=== PATIENT | female | born 1955 | race Caucasian/White ===

== ENCOUNTER 2025-05-25 15:47 | Emergency (ER) | payer MEDICARE, MEDICAID, SELFPAY ==
[2025-05-25] VITALS (17 sets, daily range): BP systolic 113–220; BP diastolic 45–109; PULSE 62–119; RESP 11–27; TEMP 36.4–37.3; O2SAT 95–100; BMI 33.6
--- NOTE | 2025-05-25 15:57 | PD.EDADULT ---
ED General RME/HPI General Chief complaint: Seizure Stated complaint: SEIZURES Time Seen by Provider: 05/25/25 15:56 Arrival date/time: 05/25/25 15:47 RME / HPI RME / HPI narrative: see MDM Related Data Home Medications ?Medication ?Instructions ?Recorded ?Confirmed Multivitamins W-Minerals 1 cap PO QDAY ##0 03/02/10 (Multivitamin) Phenytoin Sodium Extended * 3 cap PO QDAY 3 days ##0 03/02/10 (DILANTIN *) Trazodone Hcl (Trazodone) 50 mg PO QDAY ##0 03/02/10 amlodipine 10 mg tablet (Norvasc) 1 PO QDAY ##0 03/02/10 atenolol 25 mg tablet (Tenormin) 1 PO QDAY ##0 03/02/10 clonazepam 0.5 mg tablet (Klonopin) 1 PO BID ##0 03/02/10 enalapril maleate 20 mg tablet 1 PO BID ##0 03/02/10 lansoprazole 30 mg capsule,delayed 1 PO QDAY ##0 03/02/10 release (Prevacid) lisinopril 40 mg tablet 1 PO QDAY ##0 03/02/10 lovastatin 20 mg tablet 1 PO QDAY ##0 03/02/10 quetiapine 100 mg tablet (Seroquel) 1 PO QDAY ##0 03/02/10 quetiapine 200 mg tablet (Seroquel) 1 PO BID ##0 03/02/10 sertraline 50 mg tablet (Zoloft) 1 PO QDAY ##0 03/02/10 Previous Rx's ?Medication ?Instructions ?Recorded levetiracetam 500 mg tablet 500 mg PO BID #60 tabs 05/25/25 (Keppra) levofloxacin 500 mg tablet 500 mg PO QDAY 10 days #10 tabs 05/25/25 Allergies Allergy/AdvReac Type Severity Reaction Status Date / Time NKA* Allergy Uncoded 03/14/12 08:46 Review of Systems Review of Systems Systems Reviewed: All systems reviewed, normal except as documented Course Course Course Narrative: see MDM Quality Measures none Orders Category Date Time Status Straight [In and Out Catheter] X1 Care 05/25/25 17:05 Completed Strict Intake and Output Routine Care 05/25/25 17:[address] abdomen pelvis wo con Stat Exams 05/25/25 17:[address] head/brain wo con Stat Exams 05/25/25 16:16 Completed CXRP [XR chest 1V portable] Stat Exams 05/25/25 16:29 Completed US gall bladder Stat Exams 05/25/25 20:09 Completed Alcohol, Urine Stat Lab 05/25/25 17:17 Completed CBC Stat Lab 05/25/25 16:10 Completed CMP [Comprehensive Metabolic Panel] Stat Lab 05/25/25 16:10 Completed Drug Screen,Urine Stat Lab 05/25/25 17:17 Completed Mag [Magnesium] Stat Lab 05/25/25 16:10 Completed Phenytoin (Dilantin) Stat Lab 05/25/25 16:10 Completed Phosphorous Stat Lab 05/25/25 16:10 Completed UA [Urinalysis] Stat Lab 05/25/25 17:17 Completed Cefepime Inj [Maxipime Inj] 2 gm Med 05/25/25 20:07 Discontinued SODIUM CHLORIDE 0.9% (Popper) [Ns 0.9% (P)] 50 ml IV X1 Furosemide Inj [Lasix Inj] Med 05/25/25 17:04 Discontinued 40 mg IVP X1 ONE LORazepam [Ativan Inj] Med 05/25/25 21:01 Discontinued 1 mg IVP X1 ONE LORazepam [Ativan Inj] Med 05/25/25 16:30 Discontinued 2 mg IVP Q10MIN PRN LORazepam [Ativan Inj] Med 05/25/25 16:11 Discontinued 2 mg IVP Q1H PRN Magnesium Sulfate 2 GM Ivpb [Magnesium Sulfate Ivpb] Med 05/25/25 18:34 Discontinued 2 gm in 50 ml IV X1 Ondansetron Inj [Zofran Inj] Med 05/25/25 21:01 Discontinued 4 mg IVP X1 ONE Vancomycin Inj 2,000 mg Med 05/25/25 20:07 Discontinued Sodium Chloride 0.9% 500 ml [Ns] 500 ml IV X1 cloNIDine HCL [Catapres] Med 05/25/25 18:06 Discontinued 0.3 mg PO X1 ONE hydrALAZINE INJ [Apresoline Inj] Med 05/25/25 20:41 Discontinued 10 mg IVP X1 ONE hydrALAZINE INJ [Apresoline Inj] Med 05/25/25 22:55 Discontinued 10 mg IVP X1 ONE levETIRAcetam INJ [Keppra Inj] Med 05/25/25 18:35 Discontinued 2,000 mg IVP X1 ONE Vital Signs Vital signs: Vital Signs Temperature 99.1 F 05/25/25 16:04 Pulse Rate 111 H 05/25/25 16:04 Respiratory Rate 24 H 05/25/25 16:04 Blood Pressure 113/85 H 05/25/25 16:04 Pulse Oximetry (%) 100 05/25/25 16:04 Oxygen Delivery Method Oxy Mask 05/25/25 16:04 Oxygen Flow Rate 15 05/25/25 16:04 Discharge Plan Plan Patient Disposition: HOME (Self Care) Prescriptions/Referrals Prescriptions/Med Rec: New levetiracetam [Keppra] 500 mg tablet 500 mg PO BID Qty: 60 0RF levofloxacin 500 mg tablet 500 mg PO QDAY 10 Days Qty: 10 0RF No Action enalapril maleate 20 MG tablet 1 PO BID Qty: 0 quetiapine [Seroquel] 200 MG tablet 1 PO BID Qty: 0 quetiapine [Seroquel] 100 MG tablet 1 PO QDAY Qty: 0 amlodipine [Norvasc] 10 MG tablet 1 PO QDAY Qty: 0 clonazepam [Klonopin] 0.5 MG tablet 1 PO BID Qty: 0 atenolol [Tenormin] 25 MG tablet 1 PO QDAY Qty: 0 lansoprazole [Prevacid] 30 MG capsule,delayed release(DR/EC) 1 PO QDAY Qty: 0 lovastatin 20 MG tablet 1 PO QDAY Qty: 0 lisinopril 40 MG tablet 1 PO QDAY Qty: 0 sertraline [Zoloft] 50 mg tablet 1 PO QDAY Qty: 0 Multivitamins W-Minerals (Multivitamin) 1 CAP capsule 1 cap PO QDAY Qty: 0 Phenytoin Sodium Extended * (DILANTIN *) 100 MG capsule 3 cap PO QDAY 3 Days Qty: 0 Patient Comments: FOR SEIZURE CONTROL Trazodone Hcl (Trazodone) 50 MG tablet 50 mg PO QDAY Qty: 0 Referrals: No Primary/Family,Physician [Primary Care Provider] - In 1 week Problem List Clinical Impression: Recurrent seizures, prison-acquired pneumonia Patient/Caregiver Discharge Instructions Discharge Activity: activity as tolerated Education Materials: ED Pneumonia (Adult), ED Seizure, Recurrent (Adult) Additional Instructions: Discharge Instructions from Dr. Leal printed for you: 1. To help prevent more seizures, give Keppra as prescribed. 2. Give Levaquin as prescribed for pneumonia. 3. Seek immediate medical care with worsening or with any concerns. Print Language: Kiswahili Stand Alone Forms: [facility] Award Info., Patient Portal Info Letter MDM Narrative MDM hospital course: 70 y/o F with PMHX of HTN, HLD, epilepsy who was brought to the ED by ambulance from [facility] due to seizures. Per EMS report patient was seizing at the facility for 14minutes prior to EMS arrival. Patient received 6mg of versed on the way and after last dose was able to break the seizure. They also report patient denied taking her home seizure meds yesterday but was able to take them today. She is currently post-ictal, did not wish to interact or participate in history taking. When asked what happened prior to arrival all she states is I dont feel so good and some pain in her belly . 1622: Labs and imaging ordered 1706: CBC shows normocytic anemia, CMP shows mild hypernatremia, phenytoin lvls wnl Clinical Information Provided by EMS Medical Records Reviewed None Medication Administration(s) Medication Administration History Discontinued Medications Clonidine (Clonidine Hcl 0.1 Mg Tablet) 0.3 mg PO X1 ONE Stop: 05/25/25 18:07 Last Admin: 05/25/25 23:01 Dose: Not Given Documented By: CG Non-Admin Reason: Change of Condition Furosemide (Furosemide Inj 10 Mg/Ml 4ml Vial) 40 mg IVP X1 ONE Stop: 05/25/25 17:05 Last Admin: 05/25/25 17:31 Dose: 40 mg Documented By: CG(2) Hydralazine HCl (Hydralazine Inj 20 Mg/Ml Vial) 10 mg IVP X1 ONE Stop: 05/25/25 20:42 Last Admin: 05/25/25 21:12 Dose: 10 mg Documented By: CG Hydralazine HCl (Hydralazine Inj 20 Mg/Ml Vial) 10 mg IVP X1 ONE Stop: 05/25/25 22:56 Last Admin: 05/25/25 23:32 Dose: Not Given Documented By: CG Non-Admin Reason: Change of Condition Magnesium Sulfate (Magnesium Sulfate Ivpb) 2 gm in 50 mls @ 25 mls/hr IV X1 ONE Stop: 05/25/25 20:33 Last Infusion: 05/25/25 21:50 Dose: Infused Documented By: Admin: 05/25/25 19:50 Dose: 25 mls/hr Documented By: CG Cefepime HCl 2 gm/ Sodium (Chloride) 50 mls @ 100 mls/hr IV X1 ONE Stop: 05/25/25 20:36 Last Infusion: 05/25/25 21:43 Dose: Infused Documented By: Admin: 05/25/25 21:13 Dose: 100 mls/hr Documented By: CG Vancomycin HCl 2,000 mg/ (Sodium Chloride) 500 mls @ 150 mls/hr IV X1 ONE Stop: 05/25/25 23:26 Last Admin: 05/25/25 22:56 Dose: Not Given Documented By: JOSE EDUARDO Non-Admin Reason: Discontinued Levetiracetam (Levetiracetam Inj 100 Mg/Ml Vial 5ml) 2,000 mg IVP X1 ONE Stop: 05/25/25 18:36 Last Admin: 05/25/25 19:37 Dose: 2,000 mg Documented By: YOANDY Lorazepam (Lorazepam 2 Mg/Ml Vial) 2 mg IVP Q1H PRN PRN Reason: breakthrough seizures Stop: 05/30/25 16:10 Lorazepam (Lorazepam 2 Mg/Ml Vial) 2 mg IVP Q10MIN PRN PRN Reason: SEIZURES Stop: 05/30/25 16:29 Last Admin: 05/25/25 17:37 Dose: 2 mg Documented By: YOANDY(2) Lorazepam (Lorazepam 2 Mg/Ml Vial) 1 mg IVP X1 ONE Stop: 05/25/25 21:02 Last Admin: 05/25/25 21:12 Dose: 1 mg Documented By: YOANDY Ondansetron HCl (Ondansetron Inj 2 Mg/Ml Inj 2 Ml) 4 mg IVP X1 ONE; Protocol Stop: 05/25/25 21:02 Last Admin: 05/25/25 21:13 Dose: 4 mg Documented By: YOANDY
--- NOTE | 2025-05-25 16:16 | XR_ITS ---
Examination: CT brain head without contrast. 2-D sagittal coronal reconstructions Date and time of exam:May 25, 2025, 1905 hours Comparison February 19, 2012 INDICATIONS: Seizure today CTDI: vol (mGy):41.8 DLP: (mGycm):857 Technique: Multiple CT axial sections of the brain have been obtained, 5 mm slice thickness. Contrast has not been administered. 2-D sagittal, coronal reconstructions have been obtained Low dose protocols were performed. One or more of the following dose reduction techniques were used; automated exposure control, adjustment of the mA and/or KV according to patient size, use of iterative reconstruction technique. Findings: No significant ventricular enlargement. Intra-axial or extra-axial hemorrhage density is not seen. No mass effect or midline shift Basal cisterns are not remarkable. Fourth ventricle is midline. Cranial vault intact. Scalp likely sebaceous cysts Significant bilateral maxillary antral sinusitis Impression: Negative for acute hemorrhage, mass effect or midline shift Consider elective brain MRI follow-up, pre and postcontrast, seizure protocol
--- NOTE | 2025-05-25 16:29 | XR_ITS ---
Examination: AP chest single view TECHNIQUE: Sitting AP portable chest single view Date and time: May 25, 2025 1647 hours Comparison March 10, 2012 INDICATIONS: Shortness of breath today. FINDINGS: Mild to moderate CHF Mild to moderate enlargement cardiac contour, prominent vascular congestion with perihilar basilar edema Heavy mitral valvular calcification Severe osteopenia Old deformity left humeral neck IMPRESSION: Mild to moderate CHF
[2025-05-25 16:39] LABS: Basophils # (Auto) 0.0 Thou/mm3 (0.0-0.2); Basophils % (Auto) 0 % (0-2.5); Eosinophils # (Auto) 0.1 Thou/mm3 (0.0-0.5); Eosinophils % (Auto) 1 % (0-10); Hematocrit 33.7 % (36.0-46.0); Hemoglobin 11.0 g/dL (12.0-16.0); Immature Granulocytes Auto 0.02 Thou/mm3 (0.00-0.00); Lymphocytes # (Auto) 1.9 Thou/mm3 (1.0-4.8); Lymphocytes % (Auto) 36 % (10-50); Mean Corpuscular HGB Conc 32.6 g/dl (31.0-37.0); Mean Corpuscular Hemoglobin 32.3 pg (25.0-35.0); Mean Corpuscular Volume 99 fL (80-100); Monocytes # (Auto) 0.4 Thou/mm3 (0.0-0.8); Monocytes % (Auto) 7 % (0-12); Neutrophils # (Auto) 2.9 Thou/mm3 (1.8-7.7); Neutrophils % (Auto) 55 % (37-80); Nucleated Red Blood Cell # 0.00 Thou/mm3 (0.00-0.00); Nucleated Red Blood Cell % 0 /100 WBC (0); Platelet Count 164 Thou/mm3 (140-440); RDW Standard Deviation 54.4 fL (36.4-46.3); Red Blood Count 3.41 Miln/mm3 (4.00-5.20); White Blood Count 5.2 Thou/mm3 (3.6-11.0)
[2025-05-25 17:01] LABS: Alanine Aminotransferase 18 U/L (10-49); Albumin, Serum 3.5 gm/dL (3.4-4.8); Albumin/Globulin Ratio 1.3 (1.2-2.2); Alkaline Phosphatase 130 U/L (46-116); Anion Gap 14 (7-16); Aspartate Amino Transferase 24 U/L (0-34); BUN/Creatinine Ratio 20 Ratio (12-20); Bilirubin,Total 0.2 mg/dL (0.3-1.2); Blood Urea Nitrogen 18 mg/dL (9-23); Calcium 8.5 mg/dL (8.3-10.6); Calcium (Corrected) 8.9 mg/dL (8.5-10.1); Carbon Dioxide 22.5 mMol/L (20.0-31.0); Chloride 111 mMol/L (98-107); Creatinine (Component) 0.9 mg/dL (0.6-1.3); Estimated Creatinine Clearance 58.8 mL/min (>60); Globulin 2.7 gm/dL (2.3-3.5); Glucose 128 mg/dL (74-106); Magnesium 1.6 mg/dL (1.6-2.6); Osmolality,Calculated 296 (275-295); Phenytoin (Dilantin) 12.2 mcg/mL; Phosphorous 4.0 mg/dL (2.4-5.1); Potassium 4.1 mMol/L (3.4-5.1); Sodium 147 mMol/L (136-145); Total Protein 6.2 gm/dL (5.7-8.2); eGFR > 60 See Note
--- NOTE | 2025-05-25 17:19 | XR_ITS ---
Examination: CT abdomen and pelvis without contrast. Coronal 3-D reconstructions. Sagittal 2-D reconstructions. Date and time of exam:May 25, 2025, 1912 hours Comparison July 11, 2012. INDICATIONS: Abdominal pain today. CTDI: vol (mGy): 11.5 DLP: (mGycm): 754 Technique: Axial images of the abdomen have been obtained, 3 mm slice thickness Intravenous contrast material has not been administered. Low dose protocols were performed. One or more of the following dose reduction techniques were used; automated exposure control, adjustment of the mA and/or KV according to patient size, use of iterative reconstruction technique. Findings: Left base pneumonia Liver is mildly irregular in contour Considerable patient motion Gallstones Gallbladder wall appears thickened Spleen is not enlarged No pancreatic mass Mild bilateral hydronephrosis which may relate to the patient's distended urinary bladder Colonic diverticulosis Normal appendix Abundant stool in the rectum with thickening of the rectal wall Anterior left pelvic hernia defect, the defect measuring 4.7 cm Severe osteopenia with advanced diffuse lumbar degenerative disc disease and moderate narrowing hip joints and IMPRESSION: Left base pneumonia. Primary hepatocellular disease Cholelithiasis, recommend abdominal sonography to exclude cholecystitis Bilateral mild hydronephrosis, consider urinary tract infection or hydronephrosis secondary to distended urinary bladder Abundant stool in the rectum with proctitis pattern Anterior left pelvic hernia defect 4.7 cm
[2025-05-25] MEDS: FUROSEMIDE INJ 10 MG/ML 4ML VIAL 40 MG IVP (17:31)
[2025-05-25] MEDS: LORazepam 2 MG/ML VIAL IVP (17:37)
[2025-05-25 17:39] LABS: Collection Type, Urine Clean Catch; Squamous Epithelial Cell,Urine 0 /hpf (0-5)
[2025-05-25 17:56] LABS: Alcohol, Urine Negative (Negative); Amphetamine/Methamp Scrn,U Negative (Negative); Barbiturate Screen,Urine Negative (Negative); Benzodiazepines Screen,Urine Positive (Negative); Benzoylecgonine Screen, Ur Negative (Negative); Fentanyl Screen,Urine Negative (Negative); Opiate Screen,Urine Negative (Negative); THC Screen,Urine Negative (Negative)
[2025-05-25 19:11] LABS: Bilirubin,Urine Negative (Negative); Blood,Urine Negative (Negative); Clarity,Urine Clear (Clear/Hazy); Color,Urine Lt-Yellow (Lt Yel-Yel); Glucose, Urine Negative (Negative); Hyaline Casts,Urine < 1 /hpf (0-1); Ketones,Urine Negative (Negative); Leukocyte Esterase,Urine Negative (Negative); Nitrite,Urine Negative (Negative); PH,Urine 6.0 (5.0-7.0); Protein,Urine Trace (Neg - Trace); RBC,Urine 5 /hpf (0-3); Specific Gravity,Urine 1.024 (1.001-1.035); Urobilinogen,Urine Negative mg/dL (0.0-1.0); WBC,Urine 2 /hpf (0-5)
--- NOTE | 2025-05-25 19:30 | PC.NURSE ---
Kitman assumes care of patient at this time, bed rails padded for sz precaution, pt is noted to be confused and not able to follow sign writer letterer or painter commands, bed in low position and locked with side rail up x 2 and padded, pt on cardiac monitoring device, b/p, and pulse ox
[2025-05-25] MEDS: levETIRAcetam INJ 100 MG/ML VIAL 5ML 2000 MG IVP (19:37)
[2025-05-25] MEDS: Magnesium Sulfate 2 GM Ivpb 2 GM/50 ML BAG IV (19:50)
--- NOTE | 2025-05-25 20:09 | XR_ITS ---
Examination: Abdomen sonogram, Limited Date and time of exam: May 25, 2025 2106 hours INDICATIONS: Right upper abdominal pain today Technique: Real-time art scale transabdominal sonographic images of the upper abdomen obtained. Findings: Gallstones not clearly depicted on this study Common bile duct 0.6 cm Pancreas obscured by bowel gas Liver 17.2 cm fatty infiltration Normal hepatopedal portal venous flow Patent IVC IMPRESSION: No gallstones could be depicted on this study Normal gallbladder wall No common bile duct stones
--- NOTE | 2025-05-25 20:24 | PD.EDADDENDU ---
Emergency Room Addendum <Andreea Winslow - Last Filed: 05/25/25 20:55> Addendum Narrative: I took over the care from previous shift physician at 6 PM on 05/25/2025. See previous notes for complete H & P and ED course. I reviewed all diagnostic test results. My review of the Head CT report is NAD. Consider elective brain MRI follow-up, pre and postcontrast, seizure protocol. My review of the Abdomen/Pelvis CT report is Left base pneumonia. Primary hepatocellular disease. Cholelithiasis, recommend abdominal sonography to exclude cholecystitis. Bilateral mild hydronephrosis, consider urinary tract infection or hydronephrosis secondary to distended urinary bladder. Abundant stool in the rectum with proctitis pattern. Anterior left pelvic hernia defect 4.7 cm. Blood tests and urine tests Diagnoses include: Recurrent seizures, senior living acquired pneumonia. Treatment here included Catapres 0.3 mg, Vancomycin 2 G, Magnesium Sulfate 2 G, Maxipime 2 G. Based on my best medical judgment, made decision no further evaluation or treatment indicated at this time. Patient understands and agrees to the discharge instructions customized and printed, see below. Discharge Instructions from Dr. Leal printed for you: 1. To help prevent more seizures, give Keppra as prescribed. 2. Give Levaquin as prescribed for pneumonia. 3. Seek immediate medical care with worsening or with any concerns. Cornel Leal MD <Cornel Leal MD - Last Filed: 05/25/25 23:33> Addendum Narrative: I took over the care from previous shift physician, Dr. Dixon, at 6 PM on 05/25/2025. See previous notes for complete H & P and ED course. I reviewed all diagnostic test results. My interpretation of the CXR is infiltrates. My review of the Head CT report is NAD. My review of the Abdomen/Pelvis CT report is: Left base pneumonia and cholelithiasis. My review of the gallbladder US report is NAD. Blood tests and urine tests unremarkable, Mg 1.6. Diagnoses include: Recurrent seizures, senior living acquired pneumonia. Treatment here included cefepime 2 g IV, hydralazine 10 mg IV X 2 for high BP, Keppra and Ativan, and MgSO4 2 gram IV. Patient returned to baseline. Based on my best medical judgment, made decision no further evaluation or treatment indicated at this time. Discharge Instructions from Dr. Leal printed for you: 1. To help prevent more seizures, give Keppra as prescribed. 2. Give Levaquin as prescribed for pneumonia. 3. Seek immediate medical care with worsening or with any concerns. Cornel Leal MD
[2025-05-25] MEDS: LORazepam 2 MG/ML VIAL 1 MG IVP (21:12)
[2025-05-25] MEDS: hydrALAZINE INJ 20 MG/ML VIAL 10 MG IVP (21:12)
[2025-05-25] MEDS: CEFEPIME INJ 2 GM in SODIUM CHLORIDE 0.9% (Popper) 50 ML IV (21:13)
[2025-05-25] MEDS: ONDANSETRON INJ 2 MG/ML INJ 2 ML 4 MG IVP (21:13)
--- NOTE | 2025-05-25 23:40 | PC.NURSE ---
Report called and received by BEN De La [facility] of [facility] ([phone])
== END 2025-05-25 23:45 | disposition skilled nursing facility (03) ==
PROVIDERS: Student in an Organized Health Care Education/Training Program; Emergency Provider Emergency Medicine
DX: G40.909 Epilepsy, unspecified, not intractable, without status epilepticus (principal); J18.9 Pneumonia, unspecified organism; K76.9 Liver disease, unspecified; K80.20 Calculus of gallbladder without cholecystitis without obstruction; N13.30 Unspecified hydronephrosis; N32.89 Other specified disorders of bladder; K46.9 Unspecified abdominal hernia without obstruction or gangrene; I10 Essential (primary) hypertension; D64.9 Anemia, unspecified; E87.0 Hyperosmolality and hypernatremia
CPT/HCPCS: 36415; 70450; 71045; 74176; 76705; 80053; 80185; 80307; 80320; 81001; 83735; 84100; 85025; 93005; 96365; 96366; 96372; 96375; 96376; 99283; J0360; J0692; J1938; J1953; J2060; J2405; J3475; J7050; G0480